=== PATIENT | male | born 1960 | race American Indian/Alaskan Native ===

== ENCOUNTER 2017-12-02 11:10 | Inpatient (IN) | payer MEDICARE, OTHER, MEDICAID ==
[2017-12-01 05:57] VITALS: PULSE 69
[2017-12-02 11:28] VITALS: BMI 19.0
--- NOTE | 2017-12-02 12:21 | CP.PCM.HP ---
<Giulia Canales - Last Filed: 12/02/17 12:25> History of Present Illness - History of Present Illness History of Present Illness: CC dialysis HPI 57 M from [facility] ESRD with HD MWF, COPD, anemia, T2DM, Diabetic neuropathy, diabetic retinopathy, gastroparesis, pulmonary embolism, DVT, esophagitis is here from [facility] for hemodialysis via Dr. Lara. Patient will be transferred back to [facility] after dialysis. Patient denies any complaints at this time. Present on Admission - Present on Admission Any Indicators Present on Admission: No History of DVT/PE: No History of Uncontrolled Diabetes: No Urinary Catheter: No Decubitus Ulcer Present: No Past Patient History - Infectious Disease Hx of Infectious Diseases: None - Tetanus Immunizations Tetanus Immunization: Up to Date - Past Social History Smoking Status: Never Smoked - CARDIAC Hx Angina: Yes (after hd) Hx Congestive Heart Failure: Yes Hx Hypercholesterolemia: Yes Hx Hypertension: Yes Hx Peripheral Edema: Yes (ble +1, left arm on and off none presently) Other/Comment: cardiomyopathy, left arm dvt x2 as per pt, stress test 2014 - PULMONARY Hx Chronic Obstructive Pulmonary Disease (COPD): Yes Hx Pneumonia: Yes - NEUROLOGICAL Hx Neurological Disorder: Yes Hx Dizziness: Yes (after hd) Other/Comment: diabetic neuropathy pain/tingling/stinging/itch from b/l knees and below, involuntary jumping, shaking and jerking movements x 2 wks - HEENT Hx HEENT Problems: Yes (missing teeth) Other/Comment: [place] left ear, blurred vision - RENAL Date of Last Dialysis Treatment: 11/30/17 - ENDOCRINE/METABOLIC Hx Endocrine Disorders: Yes (dka) Hx Diabetes Mellitus Type 2: Yes - HEMATOLOGICAL/ONCOLOGICAL Hx Blood Disorders: Yes Hx Anemia: Yes (blood transfusion) - INTEGUMENTARY Hx Dermatological Problems: Yes Other/Comment: left facial and orbital cellulitis chronic on and off, pt stated "I feel bumps under the skin on my face when I run my hands over skin"./ dry leathery skin ble with multiple dark brown skin discolorations, r knee healed wound scars, dark brown skin discoloratins to feet thick hard toenails both feet , multiple skin discolorations to both arms, multiple dark closed wounds b/l legs, healed diabetic foot ulcers - MUSCULOSKELETAL/RHEUMATOLOGICAL Hx Falls: Yes (jul 2017) - GASTROINTESTINAL Hx Gastrointestinal Disorders: Yes (+c dif 06/17/2013) Hx Gall Bladder Disease: Yes (gallstones dx 05/07/2013) Hx Gastroesophageal Reflux: Yes HX Swallowing Problems: Yes (dysphagia x 1 wk) Other/Comment: endo 05/30/16 dx hiatal hernia, gastric erostions with bx's, gastrophoresis with bx's, poor appetite denies weight loss, gi bleed - GENITOURINARY/GYNECOLOGICAL Hx Genitourinary Disorders: Yes Hx Incontinence: Yes (oliguria) - PSYCHIATRIC Hx Substance Use: No - SURGICAL HISTORY Hx Amputation: No Hx Appendectomy: No Hx Cardiac Catheterization: Yes (04/2013 dr kellogg) Hx Cholecystectomy: No Hx Coronary Stent: No Hx Gastric Bypass Surgery: No Hx Hysterectomy: No Hx Joint Replacement: No Hx Kidney Transplant: No Hx Liver Transplant: No Hx Mastectomy: No Hx Musculoskeletal Surgery: No Hx Open Heart Surgery: No Hx Orthopedic Surgery: Yes (L hip fx orif 08/09/17, pt fell) Hx Splenectomy: No Hx Valve Replacement: No Other/Comment: candi av shunt, ultrasound guided r thoracentesis 08/22/13 2600 straw fluid drained, fistulagram 10/15/17 - ANESTHESIA Hx Anesthesia: Yes Hx Anesthesia Reactions: No Hx Malignant Hyperthermia: No Meds Allergies/Adverse Reactions: Allergies Allergy/AdvReac Type Severity Reaction Status Date / Time No Known Allergies Allergy Verified 10/11/17 00:51 Physical Exam - Constitutional Appears: Non-toxic, No Acute Distress - Head Exam Head Exam: ATRAUMATIC, NORMAL INSPECTION, NORMOCEPHALIC - Eye Exam Eye Exam: EOMI, Normal appearance - ENT Exam ENT Exam: Mucous Membranes Moist - Neck Exam Neck exam: Positive for: Full Rom. Negative for: Tenderness - Respiratory Exam Respiratory Exam: NORMAL BREATHING PATTERN. absent: Accessory Muscle Use - Cardiovascular Exam Cardiovascular Exam: REGULAR RHYTHM, +S1, +S2 - Extremities Exam Extremities exam: Positive for: full ROM. Negative for: pedal edema Additional comments: left upper extremity AVF, bruit ascultated and palpated. - Back Exam Back exam: FULL ROM, NORMAL INSPECTION. absent: CVA tenderness (L), CVA tenderness (R) - Neurological Exam Neurological exam: Alert, CN II-XII Intact - Psychiatric Exam Psychiatric exam: Flat Affect, Normal Mood - Skin Skin Exam: Dry, Intact, Normal Color, Warm Assessment & Plan - Assessment and Plan (Free Text) Assessment: Patient may be discharged after tolerating dialysis today 12/02 Dr. Romie Canales DO PGY1 - Date & Time Date: 12/02/17 Time: 12:27 <Romie Eduardo - Last Filed: 12/02/17 20:05> Results - Vital Signs Recent Vital Signs: Last Vital Signs Temp 97.7 F 12/02/17 15:55 Pulse 67 12/02/17 15:55 Resp 18 12/02/17 15:55 BP 139/72 12/02/17 15:55 Pulse Ox 98 12/02/17 15:55 - Labs Labs: Laboratory Results - last 24 hr 12/02/17 16:21 POC Glucose (mg/dL) 153 H Attending/Attestation - Attestation I have personally seen and examined this patient.: Yes I have fully participated in the care of the patient.: Yes I have reviewed all pertinent clinical information: Yes
--- NOTE | 2017-12-02 12:30 | CP.PCM.DIS ---
<Giulia Canales - Last Filed: 12/02/17 18:24> Provider - Provider Date of Admission: 12/02/17 11:10 Attending physician: Romie Eduardo MD Consults: Dr. Lara Time Spent in preparation of Discharge (in minutes): 25 Hospital Course - Hospital Course Hospital Course: CC dialysis HPI 57 M from [facility] ESRD with HD MWF, COPD, anemia, T2DM, Diabetic neuropathy, diabetic retinopathy, gastroparesis, pulmonary embolism, DVT, esophagitis is here from [facility] for hemodialysis via Dr. Lara. Patient will be transferred back to [facility] after dialysis. Patient denies any complaints at this time. - Date & Time of H&P Date of H&P: 12/02/17 Time of H&P: 12:30 Discharge Exam - Additional Findings Additional findings: - Constitutional Appears: Non-toxic, No Acute Distress - Head Exam Head Exam: ATRAUMATIC, NORMAL INSPECTION, NORMOCEPHALIC - Eye Exam Eye Exam: EOMI, Normal appearance - ENT Exam ENT Exam: Mucous Membranes Moist - Neck Exam Neck exam: Positive for: Full Rom. Negative for: Tenderness - Respiratory Exam Respiratory Exam: NORMAL BREATHING PATTERN. absent: Accessory Muscle Use - Cardiovascular Exam Cardiovascular Exam: REGULAR RHYTHM, +S1, +S2 - Extremities Exam Extremities exam: Positive for: full ROM. Negative for: pedal edema Additional comments: left upper extremity AVF, bruit ascultated and palpated. - Back Exam Back exam: FULL ROM, NORMAL INSPECTION. absent: CVA tenderness (L), CVA tenderness (R) - Neurological Exam Neurological exam: Alert, CN II-XII Intact - Psychiatric Exam Psychiatric exam: Flat Affect, Normal Mood - Skin Skin Exam: Dry, Intact, Normal Color, Warm Discharge Plan - Follow Up Plan Condition: GOOD Disposition: OTHER INSTITUTION Patient education suggested?: Yes Instructions: Heart Failure, Adult (DC), Hemodialysis (DC), End Stage Kidney Disease (DC) Additional Instructions: Patient can be discharged back to [facility] after having dialysis <Romie Eduardo - Last Filed: 12/02/17 20:06> Provider - Provider Date of Admission: 12/02/17 11:10 Attending physician: Romie Eduardo MD Hospital Course - Lab Results Lab Results: Most Recent Lab Values POC Glucose (mg/dL) 153 mg/dL (65-110) H 12/02/17 16:21 Attending/Attestation - Attestation I have personally seen and examined this patient.: Yes I have fully participated in the care of the patient.: Yes I have reviewed all pertinent clinical information, including history, physical exam and plan: Yes
[2017-12-02 14:43] VITALS: O2SAT 98
--- NOTE | 2017-12-02 16:44 | CP.PCM.CON ---
History of Present Illness - History of Present Illness History of Present Illness: Initial Nephrology Consultation: Assessment: Stable pneumonia, hx of COPD, DVT/PE Diabetic chronic Kidney Disease (E11.22) Hypertensive Chronic Kidney Disease (I12.0) End stage renal disease (N18.6) dependence on hemodialysis (Z99.2) (MWF) via AVF Anemia (D64.9), Hyperphosphatemia (E83.39), Secondary Hyperparathyroidism (E21.1 ), HTN (I12.0) Plan: Will plan for HD today as ordered. Continue with Nephrovite 1 tab/day. PRBC as needed for anemia. not On NIGEL as, last Hb 11.7 Continue with phos binders home dose, check phos level BP control with meds as ordered. Glycemic control, Dialysis consistent diet Further work up/management as per primary team Dose meds/antibiotics (if needed) for ESRD status. Avoid fleets enema/magnesium based laxatives. Thanks for allowing me to participate in care of your patient. Please call if any Qs Dr Jas Lara Office: [phone] Chief Complaint; pneumonia HPI: Pt is a 57 M from [facility] with hx ESRD with HD MWF via AVF ( Dr Amaya/Dr Du), COPD, anemia, DM, Diabetic neuropathy, diabetic retinopathy, gastroparesis, pulmonary embolism, DVT, esophagitis is admitted to [facility] for pneumonia and here at [facility] for dialysis. renal consult for ESRD management. pt feels better. has cough + but SOB better ROS: Cardiovascular: No chest pain. Pulmonary: No shortness of breath but has cough Gastrointestinal: denies abdominal pain No nausea. No vomiting. Genitourinary: No pain while urinating. Denies blood in urine. All other negative Physical Examination: seen on HD General Appearance: Comfortable, in no acute respiratory distress, co-operative . Vitals reviewed and noted as below Head; Atraumatic, normocephalic ENT: no ulcers no thrush. Tongue is midline. Oropharynx: no rash or ulcers. EYES: Pupils are equal, round and reactive to light accommodation. Eye muscles and extraocular movement intact. Sclera is anicteric. Neck; supple no lymphadenopathy, no thyromegaly or bruit Lungs: Normal respiratory rate/effort. Breath sounds bilateral equal and clear anteriorly Heart: Normal rate. s1s2 normal. No rub or gallop. Extremities: no edema. No varicose veins Neurological: Patient is alert, awake and oriented to person, place and time. No focal deficit. Strength bilateral appropriate and equal Skin: Warm and dry. Normal turgor. No rash. Palpitation: Normal elasticity for age Abdomen: Abdomen is soft. Bowel sounds +. There is no abdominal tenderness, no guarding/rigidity or organomegaly Psych: normal insight and normal affect/mood MSK: no joint tenderness or swelling. Digits and nails normal, no deformity. hand muscles wasting noted : kidney or bladder not palpable Access: AVF Labs/imaging reviewed. Past medical history, past surgical history, family history, social history, allergy reviewed and noted as below Family Hx: no hx of CKD. Non contributory Past Patient History - Infectious Disease Hx of Infectious Diseases: None - Tetanus Immunizations Tetanus Immunization: Up to Date - Past Medical History & Family History Past Medical History?: Yes - Past Social History Smoking Status: Never Smoked - CARDIAC Hx Angina: Yes (after hd) Hx Congestive Heart Failure: Yes Hx Hypercholesterolemia: Yes Hx Hypertension: Yes Hx Peripheral Edema: Yes (ble +1, left arm on and off none presently) Other/Comment: cardiomyopathy, left arm dvt x2 as per pt, stress test 2014 - PULMONARY Hx Chronic Obstructive Pulmonary Disease (COPD): Yes Hx Pneumonia: Yes - NEUROLOGICAL Hx Neurological Disorder: Yes Hx Dizziness: Yes (after hd) Other/Comment: diabetic neuropathy pain/tingling/stinging/itch from b/l knees and below, involuntary jumping, shaking and jerking movements x 2 wks - HEENT Hx HEENT Problems: Yes (missing teeth) Other/Comment: [place] left ear, blurred vision - RENAL Date of Last Dialysis Treatment: 11/30/17 - ENDOCRINE/METABOLIC Hx Endocrine Disorders: Yes (dka) Hx Diabetes Mellitus Type 2: Yes - HEMATOLOGICAL/ONCOLOGICAL Hx Blood Disorders: Yes Hx Anemia: Yes (blood transfusion) - INTEGUMENTARY Hx Dermatological Problems: Yes Other/Comment: left facial and orbital cellulitis chronic on and off, pt stated "I feel bumps under the skin on my face when I run my hands over skin"./ dry leathery skin ble with multiple dark brown skin discolorations, r knee healed wound scars, dark brown skin discoloratins to feet thick hard toenails both feet , multiple skin discolorations to both arms, multiple dark closed wounds b/l legs, healed diabetic foot ulcers - MUSCULOSKELETAL/RHEUMATOLOGICAL Hx Falls: Yes (jul 2017) - GASTROINTESTINAL Hx Gastrointestinal Disorders: Yes (+c dif 06/17/2013) Hx Gall Bladder Disease: Yes (gallstones dx 05/07/2013) Hx Gastroesophageal Reflux: Yes HX Swallowing Problems: Yes (dysphagia x 1 wk) Other/Comment: endo 05/30/16 dx hiatal hernia, gastric erostions with bx's, gastrophoresis with bx's, poor appetite denies weight loss, gi bleed - GENITOURINARY/GYNECOLOGICAL Hx Genitourinary Disorders: Yes Hx Incontinence: Yes (oliguria) - PSYCHIATRIC Hx Substance Use: No - SURGICAL HISTORY Hx Amputation: No Hx Appendectomy: No Hx Cardiac Catheterization: Yes (04/2013 dr kellogg) Hx Cholecystectomy: No Hx Coronary Stent: No Hx Gastric Bypass Surgery: No Hx Hysterectomy: No Hx Joint Replacement: No Hx Kidney Transplant: No Hx Liver Transplant: No Hx Mastectomy: No Hx Musculoskeletal Surgery: No Hx Open Heart Surgery: No Hx Orthopedic Surgery: Yes (L hip fx orif 08/09/17, pt fell) Hx Splenectomy: No Hx Valve Replacement: No Other/Comment: candi av shunt, ultrasound guided r thoracentesis 08/22/13 2600 straw fluid drained, fistulagram 10/15/17 - ANESTHESIA Hx Anesthesia: Yes Hx Anesthesia Reactions: No Hx Malignant Hyperthermia: No Meds Allergies/Adverse Reactions: Allergies Allergy/AdvReac Type Severity Reaction Status Date / Time No Known Allergies Allergy Verified 10/11/17 00:51 Results - Vital Signs Recent Vital Signs: Last Vital Signs Temp 97.9 F 12/02/17 12:50 Pulse 74 12/02/17 12:50 Resp 16 12/02/17 12:50 BP 156/92 H 12/02/17 14:40 Pulse Ox 98 12/02/17 12:50 - Labs Labs: Laboratory Results - last 24 hr 12/02/17 16:21 POC Glucose (mg/dL) 153 H
[2017-12-02 17:16] VITALS: BP 139/72; PULSE 67; RESP 18; TEMP 97.7
== END 2017-12-02 17:17 | disposition designated cancer center or children's hospital (05) | DRG 291 ==
LOC: C.3T 11:10
PROVIDERS: ADMIT Family Medicine; ATTEND Family Medicine
PROC: 5A1D70Z Performance of Urinary Filtration, Intermittent, Less than 6 Hours Per Day (ICD-10-PCS; principal; 2017-12-02)
DX: I13.2 Hypertensive heart and chronic kidney disease with heart failure and with stage 5 chronic kidney disease, or end stage renal disease (principal); N18.6 End stage renal disease; J18.9 Pneumonia, unspecified organism; N25.81 Secondary hyperparathyroidism of renal origin; J44.0 Chronic obstructive pulmonary disease with (acute) lower respiratory infection; E11.22 Type 2 diabetes mellitus with diabetic chronic kidney disease; E11.319 Type 2 diabetes mellitus with unspecified diabetic retinopathy without macular edema; E11.43 Type 2 diabetes mellitus with diabetic autonomic (poly)neuropathy; I42.9 Cardiomyopathy, unspecified; E78.00 Pure hypercholesterolemia, unspecified; Z86.718 Personal history of other venous thrombosis and embolism; I50.9 Heart failure, unspecified; E83.39 Other disorders of phosphorus metabolism; E11.621 Type 2 diabetes mellitus with foot ulcer; L97.509 Non-pressure chronic ulcer of other part of unspecified foot with unspecified severity; K31.84 Gastroparesis; Z86.711 Personal history of pulmonary embolism; Z87.01 Personal history of pneumonia (recurrent); Z99.2 Dependence on renal dialysis